=== PATIENT | female | born 1965 | race Caucasian/White ===

== ENCOUNTER 2019-09-06 15:12 | Emergency (ER) | payer OTHER ==
[~2019-09-06] VITALS: Ht 162.6 cm; Wt 81.6 kg
[2019-09-06 15:14] VITALS: BP 147/92
--- NOTE | 2019-09-06 15:25 | NUR ---
PT TO CHHAYA CASTANO
--- NOTE | 2019-09-06 15:53 | NUR ---
PT AMBULATED TO BED 07
[2019-09-06] MEDS ORDERED: ONDANSETRON 4 MG/2 ML VIAL IVP ONE (16:10)
[2019-09-06] MEDS ORDERED: MORPHINE SULFATE 4 MG/ML SYR IVP ONE (16:10)
[2019-09-06 16:34] LABS: BASOPHILS % (AUTO) 0.4 % (0.0-2.0); EOSINOPHILS % (AUTO) 0.4 % (0.0-4.0); HEMATOCRIT 48.7 % (36-48); HEMOGLOBIN 15.9 g/dL (12.0-16.0); LYMPHOCYTES # (AUTO) 1.5 K/uL (2.5-16.5); LYMPHOCYTES % (AUTO) 15.7 % (20.5-51.1); MEAN CORPUSCULAR HEMOGLOBIN 29 pg (27-31); MEAN CORPUSCULAR HGB CONC 33 g/dL (33-37); MEAN CORPUSCULAR VOLUME 88.8 fL (80-94); MONOCYTES # (AUTO) 0.5 K/uL (0.8-1.0); MONOCYTES % (AUTO) 5.1 % (1.7-9.3); NEUTROPHILS # (AUTO) 7.3 K/uL (1.8-7.7); NEUTROPHILS % (AUTO) 78.4 % (42.2-75.2); PLATELET COUNT (AUTO) 402 K/uL (140-450); RED BLOOD CELL COUNT(AUTO) 5.49 MIL/uL (4.20-5.40); RED CELL DISTRIBUTION WIDTH 15.2 % (11.6-13.7); WHITE BLOOD COUNT (AUTO) 9.3 K/uL (4.8-10.8)
--- NOTE | 2019-09-06 16:35 | NUR ---
stat labs drawn and urine collected.
--- NOTE | 2019-09-06 16:47 | NUR ---
53 Y/F PRESENTS TO ED WITH DAUGTHER FOR RUQ ABD PAIN RADIATING TO BACK SINCE 830 THIS MORNING. PT REPORTS NAUSEA AND VOMITING, DENIES DIARRHEA. PT REPORTS LOSS OF APPETITE. PT WAS PREVIOUSLY DX WITH KIDNEY STONE AND GALLSTONE BACK IN JULY AND WAITING FOR REFERRAL. PT REPORTS 9/10 "HARD, DULL PAIN" IN RUQ. ABDOMEN SOFT, NON DISTENDED. HX- COPD, TOTAL KNEE REPLACEMENT (R), HTN, UMBILICAL HERNIA.
[2019-09-06 16:48] LABS: ALBUMIN 3.2 g/dL (3.4-5.0); ANION GAP 14.1 (8-16); CARBON DIOXIDE 25.8 mmol/L (21-32); CREATININE 1.8 mg/dL (0.6-1.3); POTASSIUM 3.9 mmol/L (3.5-5.1); TOTAL BILIRUBIN 0.5 mg/dL (0.0-1.0)
--- NOTE | 2019-09-06 16:49 | NUR ---
XR AT BEDSIDE.
--- NOTE | 2019-09-06 17:07 | NUR ---
CONTRAST ADMINISTRATION CONSENT FORM REVIEWED AND SIGNED BY PATIENT.
[2019-09-06 17:24] LABS: APPEARANCE,URINE CLOUDY (CLEAR); BILIRUBIN,URINE NEGATIVE (NEGATIVE); BLOOD, URINE 3+ (NEGATIVE); COLOR,URINE YELLOW (YELLOW); LEUKOCYTE ESTERASE ,URINE 3+ (NEGATIVE); NITRITE, URINE POSITIVE (NEGATIVE); PH,URINE 7.5 (5.0-9.0); UGLUCOSE NEGATIVE (NEGATIVE)
--- NOTE | 2019-09-06 17:38 | NUR ---
Patient taken to CT scan via wheelchair by tech.
--- NOTE | 2019-09-06 17:39 | NUR ---
PT WHEELED TO CT VIA WHEELCHAIR.
[2019-09-06 17:49] LABS: RBC,URINE TOO NUMEROUS TO COUN /HPF (0-5); WBC,URINE TOO MANY TO COUNT /HPF (0-5)
--- NOTE | 2019-09-06 17:54 | NUR ---
Patient returned from CT scan. RN re-evaluating patient at bedside.
--- NOTE | 2019-09-06 19:02 | NUR ---
PT LYING COMFORTABLY IN BED, RR EVEN AND UNLABORED, PAIN 4/10.
--- NOTE | 2019-09-06 19:13 | NUR ---
TRANSFER OF CARE TO [facility]
--- NOTE | 2019-09-06 19:35 | NUR ---
PATIENT REQUESTED PAIN MEDICATION BEFORE LEAVING. ERMD MADE AWARE, NO ORDERED RECIEVED. PATIENT INFORMED AND CLEARED FOR DISCHARGE.
--- NOTE | 2019-09-06 19:39 | NUR ---
Patient discharged with v/s stable. Written and verbal after care instructions given and explained. Patient alert, oriented and verbalized understanding of instructions. Ambulatory with steady gait. All questions addressed prior to discharge. ID band removed. Patient advised to follow up with PMD. Rx of KEFLEX given. Patient educated on indication of medication including possible reaction and side effects. Opportunity to ask questions provided and answered. Addendum: 09/06/19 at 1941 by JEAN PIERRE PATIENT ACCOMPANIED BY DAUGHTER FOR RIDE.
[2019-09-06 19:40] VITALS: BP 135/87
== END 2019-09-06 19:40 | disposition home or self-care (01) ==
LOC: MED 15:12
DX: N39.0 Urinary tract infection, site not specified (principal); R11.2 Nausea with vomiting, unspecified; J44.9 Chronic obstructive pulmonary disease, unspecified; I10 Essential (primary) hypertension; F17.210 Nicotine dependence, cigarettes, uncomplicated; Z87.442 Personal history of urinary calculi; Z98.890 Other specified postprocedural states; Z88.8 Allergy status to other drugs, medicaments and biological substances; Z88.1 Allergy status to other antibiotic agents; Z91.040 Latex allergy status
CPT/HCPCS: 36415; 71045; 74176; 80053; 81001; 83690; 85025; 87086; 87186; 96374; 96375; 99285; J2270; J2405; Q0092